=== PATIENT | female | born 1970 | race African-American/Black ===

== ENCOUNTER 2019-11-25 16:56 | Emergency (ER) | payer BC ==
[~2019-11-25] VITALS: Ht 170.2 cm; Wt 94.8 kg
[2019-11-25 16:57] VITALS: BP 121/86
[2019-11-25] MEDS ORDERED: ADIPEX-P37.5 MG PO (17:10)
[2019-11-25] MEDS ORDERED: [UNRECOGNIZED DRUG - OTHER] (17:11)
== END 2019-11-25 19:05 | disposition home or self-care (01) ==
LOC: ER 16:56
DX: S93.401A Sprain of unspecified ligament of right ankle, initial encounter (principal); Z90.711 Acquired absence of uterus with remaining cervical stump; Z91.040 Latex allergy status; Z79.899 Other long term (current) drug therapy; W10.8XXA Fall (on) (from) other stairs and steps, initial encounter; Y93.89 Activity, other specified; Y92.098 Other place in other non-institutional residence as the place of occurrence of the external cause; Y99.8 Other external cause status

== ENCOUNTER 2020-03-12 12:44 | Emergency (ER) | payer BC ==
[~2020-03-12] VITALS: Ht 170.2 cm; Wt 95.3 kg
[~2020-03-12 12:44] MED LIST: ADIPEX-P37.5 MG PO; [UNRECOGNIZED DRUG - OTHER]
[2020-03-12] MEDS ORDERED: ROSUVASTATIN CA20 MG PO (12:58)
[2020-03-12] MEDS ORDERED: HYDROCODON-ACE1 EAC7 PO (12:58)
[2020-03-12] MEDS ORDERED: OLOPATADINE HCL5 ML (12:59)
[2020-03-12] MEDS ORDERED: ZOFRAN ODT4 MG PO (15:13)
[2020-03-12 16:05] VITALS: BP 127/76
== END 2020-03-12 16:07 | disposition home or self-care (01) ==
LOC: ER 12:44
DX: R11.2 Nausea with vomiting, unspecified (principal); R19.7 Diarrhea, unspecified; Z90.710 Acquired absence of both cervix and uterus; Z79.899 Other long term (current) drug therapy; Z91.040 Latex allergy status

== ENCOUNTER 2020-04-27 17:14 | Emergency (ER) | payer BC ==
[~2020-04-27] VITALS: Ht 170.2 cm; Wt 95.3 kg
[~2020-04-27 17:14] MED LIST changes: +HYDROCODON-ACE1 EAC7 PO; +OLOPATADINE HCL5 ML; +ROSUVASTATIN CA20 MG PO; +ZOFRAN ODT4 MG PO
[2020-04-27] MEDS ORDERED: SAXENDA3 MG/0.5 M SUBQ (17:27)
[2020-04-27] MEDS ORDERED: PERIDEX 0.12%473 M1 SWISH&SPIT (17:27)
[2020-04-27 18:15] LABS: ABSOLUTE NEUTROPHILS 1.9 thou/uL (1.4-8.2); BASOPHILS 0.5 % (0.0-2.0); EOSINOPHILS 1.3 % (0.0-3.0); HEMATOCRIT 36.5 % (37.0-47.0); HEMOGLOBIN 11.7 gm/dL (12.0-15.0); LYMPHOCYTES 46.3 % (24.0-44.0); MCH 28.5 pg (26.0-34.0); MCHC 32.1 g/dL (28.0-37.0); MCV 88.7 fL (80.0-100.0); MONOCYTES 4.1 % (1.0-8.0); PLATELET COUNT 291 thou/uL (150-400); POLYS 47.8 % (36.0-66.0); RBC 4.12 mil/uL (4.20-5.00); RDW 13.9 % (10.5-14.5); WBC 4.1 thou/uL (4.0-11.0)
[2020-04-27 18:23] LABS: CREATININE 0.9 mg/dL (0.6-1.0); POTASSIUM 3.9 mmol/L (3.5-5.1)
[2020-04-27 18:30] LABS: ALBUMIN 3.3 g/dL (3.4-5.0); TOTAL BILIRUBIN 0.3 mg/dL (0.2-1.0); TOTAL PROTEIN 8.2 g/dL (6.4-8.2)
[2020-04-27 20:50] VITALS: BP 133/88
== END 2020-04-27 20:50 | disposition home or self-care (01) ==
LOC: ER 17:14
PROVIDERS: Physician Assistant
DX: E04.1 Nontoxic single thyroid nodule (principal); Z90.710 Acquired absence of both cervix and uterus; Z79.899 Other long term (current) drug therapy; Z91.040 Latex allergy status

== ENCOUNTER 2020-06-09 15:39 | Emergency (ER) | payer BC ==
[~2020-06-09] VITALS: Ht 170.2 cm; Wt 63.5 kg
[~2020-06-09 15:39] MED LIST changes: +PERIDEX 0.12%473 M1 SWISH&SPIT; +SAXENDA3 MG/0.5 M SUBQ
[2020-06-09 15:48] VITALS: BP 133/85
[2020-06-09] MEDS ORDERED: WELLBUTRIN SR150 MG PO (15:50)
[2020-06-09] MEDS ORDERED: ROSUVASTATIN CA20 MG PO (15:50)
[2020-06-09] MEDS ORDERED: ROBAXIN 750 MG750 MG PO (16:15)
== END 2020-06-09 16:29 | disposition home or self-care (01) ==
LOC: ER 15:39
DX: M62.838 Other muscle spasm (principal); Z91.040 Latex allergy status; Z79.899 Other long term (current) drug therapy; Z90.710 Acquired absence of both cervix and uterus; Z98.890 Other specified postprocedural states

== ENCOUNTER 2020-12-02 13:37 | Emergency (ER) | payer BC ==
[~2020-12-02] VITALS: Ht 167.6 cm; Wt 90.7 kg
[~2020-12-02 13:37] MED LIST changes: +ROBAXIN 750 MG750 MG PO; +WELLBUTRIN SR150 MG PO
[2020-12-02 14:57] VITALS: BP 121/73
== END 2020-12-02 14:59 | disposition home or self-care (01) ==
LOC: ER 13:37
DX: M79.604 Pain in right leg (principal); Z90.710 Acquired absence of both cervix and uterus; Z79.899 Other long term (current) drug therapy; Z91.040 Latex allergy status

== ENCOUNTER 2021-01-01 14:56 | Emergency (ER) | payer BC ==
[~2021-01-01] VITALS: Ht 170.2 cm; Wt 90.7 kg
[2021-01-01] MEDS ORDERED: TIZANIDINE HCL4 M2 PO (15:41)
[2021-01-01 15:42] LABS: URINE BILIRUBIN NEGATIVE (Negative); URINE BLOOD 3+ (Negative); URINE CLARITY CLEAR; URINE COLOR YELLOW; URINE GLUCOSE-RANDOM* NEGATIVE (Negative); URINE KETONES NEGATIVE (Negative); URINE PROTEIN (DIPSTICK) NEGATIVE (Negative); URINE SPECIFIC GRAVITY 1.025 (1.005-1.035)
[2021-01-01 15:44] LABS: URINE LEUKOCYTES-REFLEX 2+ (Negative); URINE NITRITE-REFLEX POSITIVE (Negative)
[2021-01-01 15:54] LABS: SQUAMOUS >10 Many /LPF (0-3)
[2021-01-01 15:55] LABS: CASTS None Seen /LPF (None Seen); URINE RBC >20 Many /HPF (NONE SEEN)
[2021-01-01 15:56] LABS: BACTERIA-REFLEX >30 Many /HPF (None Seen); CRYSTALS None Seen /LPF (None Seen)
[2021-01-01 16:50] LABS: ABSOLUTE NEUTROPHILS 2.2 thou/uL (1.4-8.2); BASOPHILS 0.9 % (0.0-2.0); EOSINOPHILS 2.2 % (0.0-3.0); HEMATOCRIT 33.9 % (37.0-47.0); HEMOGLOBIN 10.7 gm/dL (12.0-15.0); LYMPHOCYTES 46.4 % (24.0-44.0); MCH 27.2 pg (26.0-34.0); MCHC 31.5 g/dL (28.0-37.0); MCV 86.3 fL (80.0-100.0); MONOCYTES 3.1 % (1.0-8.0); PLATELET COUNT 262 thou/uL (150-400); POLYS 47.4 % (36.0-66.0); RBC 3.92 mil/uL (4.20-5.00); RDW 14.5 % (10.5-14.5); WBC 4.7 thou/uL (4.0-11.0)
[2021-01-01 16:51] LABS: ANION GAP 9 mmol/L (7-16); BUN 15 mg/dL (7-18); CALCIUM 8.6 mg/dL (8.5-10.1); CHLORIDE 105 mmol/L (98-107); CO2 25 mmol/L (21-32); CREATININE 0.8 mg/dL (0.6-1.0); GLUCOSE 113 mg/dL (74-106); SODIUM 139 mmol/L (136-145)
[2021-01-01] MEDS ORDERED: CEPHALEXIN500 MG PO (16:56)
[2021-01-01 16:57] LABS: ALBUMIN 2.9 g/dL (3.4-5.0); DIRECT BILIRUBIN < 0.1 mg/dL (<0.1-0.2); LIPASE 147 U/L (73-393); SGOT 18 U/L (15-37); SGPT 15 U/L (14-59); TOTAL BILIRUBIN 0.2 mg/dL (0.2-1.0); TOTAL PROTEIN 7.8 g/dL (6.4-8.2)
[2021-01-01 17:46] VITALS: BP 139/74
== END 2021-01-01 17:47 | disposition home or self-care (01) ==
LOC: ER 14:56
PROVIDERS: Nurse Practitioner
DX: N39.0 Urinary tract infection, site not specified (principal); R30.0 Dysuria; R10.31 Right lower quadrant pain; Z98.890 Other specified postprocedural states; Z90.710 Acquired absence of both cervix and uterus; Z79.1 Long term (current) use of non-steroidal anti-inflammatories (NSAID); Z79.891 Long term (current) use of opiate analgesic; Z79.899 Other long term (current) drug therapy; Z91.040 Latex allergy status